=== PATIENT | male | born 1960 | race Caucasian/White ===

== ENCOUNTER 2016-11-20 13:38 | Emergency (ER) | payer MEDICAID ==
[~2016-11-20] VITALS: Ht 170.2 cm; Wt 86.0 kg
[2016-11-20] MEDS ORDERED: KETOROLAC TROMETHAMINE 60 MG/2 ML VIAL IM ONE (15:15)
[2016-11-20] MEDS ORDERED: METHOCARBAMOL 500 MG TABLET PO ONE (15:15)
[2016-11-20 16:04] VITALS: BP 121/75
== END 2016-11-20 16:37 | disposition home or self-care (01) ==
LOC: EMS 13:40
DX: M54.5 Low back pain (principal)
CPT/HCPCS: 96372; 99283; J1885